=== PATIENT | male | born 1940 | race Caucasian/White ===

== ENCOUNTER → 2016-06-16 | Outpatient (CLI) | payer OTHER ==
[~2016-06-16] MED LIST: ASPCH81X PO; ATEN50TA PO; CIPR-255 PO; RAMI5CAP32 PO; SIMV20TA5 PO; TAMS0.4C38 PO
[2016-06-16 15:15] LABS: ALT/SGPT 48 U/L (12-78); AST/SGOT 26 U/L (15-37); BLOOD UREA NITROGEN 16 mg/dl (7-18); BUN/CREATININE RATIO 16.6 (10-20); CALCIUM 9.2 mg/dl (8.5-10.1); CARBON DIOXIDE 27 mmol/L (21-32); CHLORIDE 104 mmol/L (98-107); CHOLESTEROL 146 mg/dl (0-200); CREATININE 0.96 mg/dl (0.60-1.40); GLUCOSE 96 mg/dl (70-99); SODIUM 139 mmol/L (136-145)
[2016-06-16 15:18] LABS: ALB/GLOB RATIO 1.5 (0.9-2); ALKALINE PHOSPHATASE 50 U/L (45-117); CHOLESTEROL/HDL RATIO 4.2; HDL CHOLESTEROL 35 mg/dl; LDL CHOLESTEROL CALCULATED 78 mg/dl; TRIGLYCERIDES 167 mg/dl (0-150); VERY LOW DENSITY LIPOPROT CALC 33 mg/dl
== END | disposition home or self-care (01) ==
LOC: C.LABBC 10:16
PROVIDERS: ATTEND Physician Assistant Medical
DX: E55.9 Vitamin D deficiency, unspecified (principal); E78.5 Hyperlipidemia, unspecified

== ENCOUNTER → 2017-05-11 | Day surgery (SDC) | payer OTHER ==
[2017-04-28 14:46] VITALS: BMI 24.0
--- NOTE | 2017-04-28 15:08 | PAT Medication Instructions ---
Service Date Apr 28, 2017. Current Home Medication List Cholecalciferol (Vitamin D3), 1 TAB PO QAM Metoprolol Succinate (Toprol Xl), 25 MG PO QAM Ramipril (Altace), 1 CAP PO QAM Simvastatin (Zocor), 1 TAB PO HS Tamsulosin Hcl (Flomax), 1 CAP PO QAM Medication Instructions For Your Scheduled Surgery - Hold the following medications the morning of surgery: Cholecalciferol (Vitamin D3), 1 TAB PO QAM Ramipril (Altace), 1 CAP PO QAM Tamsulosin Hcl (Flomax), 1 CAP PO QAM - Take the following medications the morning of surgery with a sip of water: Metoprolol Succinate (Toprol Xl), 25 MG PO QAM - Take the following medications as scheduled the night before surgery: Simvastatin (Zocor), 1 TAB PO HS If you have any questions please call us at [phone] or [phone] or [phone]
--- NOTE | 2017-04-28 16:18 | DIAGNOSTIC IMAGING REPORT ---
CHEST 2 VIEWS ROUTINE CLINICAL HISTORY: Preoperative evaluation. COMPARISON STUDY: No previous studies for comparison. FINDINGS: Lung volumes are normal. Linear left lower lung opacity is suggestive of atelectasis or scarring. There is no pneumonia or evidence for pulmonary edema. Cardiomediastinal silhouette is unremarkable. IMPRESSION: No acute cardiopulmonary findings. Electronically signed by: Garry Campos M.D. 04/28/2017 4:16 PM Dictated Date/Time: 04/28/2017 4:16 PM
[2017-04-28 16:25] LABS: BASO % 0.4 %; BASO ABS # 0.02 K/uL (0-0.2); EOS % 2.5 %; EOS ABS # 0.12 K/uL (0-0.5); HEMATOCRIT 42.9 % (42-52); HEMOGLOBIN 15.1 g/dL (14.0-18.0); IG# 0.01 K/uL (0.00-0.02); LYMPH % 31.9 %; LYMPH ABS # 1.51 K/uL (1.2-3.4); MEAN CELL VOLUME 95.3 fL (80-100); MEAN CORPUSCULAR HEMOGLOBIN 33.6 pg (25-34); MEAN CORPUSCULAR HGB CONC 35.2 g/dl (32-36); MEAN PLATELET VOLUME 9.9 fL (7.4-10.4); MONO % 7.8 %; MONO ABS # 0.37 K/uL (0.11-0.59); NEUT % 57.2 %; NEUT ABS # 2.71 K/uL (1.4-6.5); PLATELET COUNT 150 K/uL (130-400); RED CELL DISTRIBUTION WIDTH CV 12.5 % (11.5-14.5); RED CELL DISTRIBUTION WIDTH SD 43.2 fL (36.4-46.3); WHITE BLOOD COUNT 4.74 K/uL (4.8-10.8)
[2017-04-28 16:42] LABS: CALCIUM 9.7 mg/dl (8.5-10.1); CREATININE 0.86 mg/dl (0.60-1.40)
[2017-04-28 17:50] LABS: HEP C IGG 13 YRS+OLDER_RFLX NEG (NEG)
[2017-05-03 02:27] LABS: HERPES SIMPLEX AB IGG-1 < 0.90 INDEX (< 0.90); HERPES SIMPLEX AB IGG-2 < 0.90 INDEX (< 0.90)
[~2017-05-11] VITALS: Ht 172.7 cm; Wt 73.6 kg
[~2017-05-11] MED LIST changes: -ASPCH81X PO; -ATEN50TA PO; +ATROPINE SULFATE 0.1 MG/ML 5ML SYR IV PRN; +BCTCR/30 EXT; +BUPIVACAINE/EPINEPHRINE 0.5% MPF 1:200,000 30 ML VIAL ONE; +CEFAZOLIN 2000MG IV PUSH 15 ML IV SCH; -CIPR-255 PO; +DEXAMETHASONE SOD INJ 4 MG/ML VIAL ONE; +EpHEDrine SULFATE INJ 50 MG/ML AMP IV PRN; +EpHEDrine SULFATE INJ 50 MG/ML AMP ONE; +FENTANYL CITRATE INJ 50 MCG/1 ML 2 ML VIAL IV PRN; +FENTANYL CITRATE INJ 50 MCG/1 ML 2 ML VIAL ONE; +LACTATED RINGER'S 1000ML IV SCH; +LIDOCAINE HCL 1% 20 ML VIAL ONE; +LIDOCAINE HCL 2% 2 ML VIAL (20MG/ML) ONE; +METO25TA4 PO; +MIDAZOLAM HCL 1 MG/ML 2ML VIAL ONE; +ONDANSETRON INJ 2 MG/ML 2 ML VIAL IV PRN; +ONDANSETRON INJ 2 MG/ML 2 ML VIAL ONE; +OXYC7.5T65 PO; +OXYCODONE/ACETAMINOPHEN 7.5-325 TAB PO PRN; +PROPOFOL IV EMULSION 10 MG/ML 20 ML VIAL IV ONE; +ROCURONIUM BROMIDE 10 MG/ML 5 ML VIAL IV ONE; +SODIUM CHLORIDE 0.9% INJ 10 ML VIAL ONE; +SUCCINYLCHOLINE CHLORIDE 20 MG/ML 10 ML VIAL IV ONE; +SULF800T23 PO; +VTMD1000 PO
[2017-05-11 10:06] VITALS: BP 162/93; PULSE 70; TEMP 37.4; O2SAT 97; Ht 172.7 cm; Wt 73.6 kg
--- NOTE | 2017-05-11 11:12 | History & Physical Bridge Note ---
H&P Re-Evaluation Bridge Note: I have examined the patient, reviewed the History & Physical and in the interval since the performance of the History & Physical I have noted the following changes of clinical significance: No changes noted
--- NOTE | 2017-05-11 12:03 | Discharge Instructions ---
Discharge Instructions Date of Service May 11, 2017. Admission Reason for Admission: Penile Lesion Discharge Discharge Diagnosis / Problem: Penile lesions Discharge Goals Goal(s): Decrease discomfort, Improve function Activity Recommendations Activity Limitations: resume your previous activity Lifting Limitations: gradually increase as tolerated Exercise/Sports Limitations: gradually increase as tolerated . Instructions / Follow-Up Instructions / Follow-Up May have pain or discomfort. Call if any issues. Okay to shower tomorrow. No bathing or soaking. Okay to wash 2-3 x daily with warm soapy water. Call if any fevers or chills. Okay to bandage as needed. Okay to apply cream 2-3 x daily as needed. Okay to use meds for pain control. Monitor for discharge or bleeding. Current Hospital Diet Patient's current hospital diet: Discharge Diet Recommended Diet: Regular Diet Procedures Procedures Performed: Excision of lesions Pending Studies Studies pending at discharge: no Medical Emergencies . Who to Call and When: Medical Emergencies: If at any time you feel your situation is an emergency, please call 911 immediately. . Non-Emergent Contact Non-Emergency issues call your: Primary Care Provider, Urologist Call Non-Emergent contact if: you have a fever, temperature is above 100.5, temperature is above 101, temperature is above 101.5, your pain is not controlled, your pain is worsening, your pain is unusual for you, wound has increased drainage, wound has increased redness, wound has increased pain . . "Provider Documentation" section prepared by Walter Phan. .
--- NOTE | 2017-05-11 13:04 | [facility] Operative Report ---
Operative Report Operative Date May 11, 2017. Pre-Operative Diagnosis Nonhealing ulcerated penile wounds Post-Operative Diagnosis Same Procedure(s) Performed Excision of glans and foreskin lesions of penis x 4. Surgeon Sylvester Estimated Blood Loss Minimal Findings Two ulcerated nonhealing lesions of dorsal glans. Specimens 1. Lesion Dorsal Glans 3 x 3 mm 2. Lesion Dorsal Calderon of glans 10 x 6 mm 3. Dorsal Foreskin lesion 18 x 4 mm 4. Right Dorsal Foreskin lesion 7 x 4 mm Drains None Anesthesia Type General Complication(s) none Indications Non healing wounds of glans failed topical treatment. Risks and benefits discussed at length. Description of Procedure Patient was consented and brought back to the operating room. Patient was placed under anesthesia in the supine position. Patient was prepped and draped in the regular sterile fashion. A time out was completed. With the timeout completed, a penile block was completed with 1% lidocaine without epinephrine. A penile occlusion was placed to assist with bleeding. This was secured. The lesions were marked and measured. The two lesions were located at the dorsal penile glans one mid glans the other at the calderon of the glans. Two other lesions were appreciated on the foreskin dorsally. These four lesions were anesthetized with local. A 15 blade scalpel was used to excise the lesion in an elliptical fashion. The lesions were then dissected and removed. The right superior side of the lesion was marked with suture for the two larger lesions. The beds were then assessed and flushed. The bleeding was controlled with cautery. The deep tissue was reapproximated with a vicryl suture for the lesion of the glans. The skin was closed with a 3-0 chromic suture. The area was cleaned, glue placed, and the area was bandaged. The occulsion was released and no bleeding was noted. The patient was cleaned, aroused from anesthesia, and transferred to the pacu in stable condition having tolerated the procedure well with no complications. I was present and participated in all aspects of the procedure. I attest to the content of the Intraoperative Record and any orders documented therein. Any exceptions are noted below.
[2017-05-11 14:03] VITALS: BP 150/80; PULSE 94; TEMP 36.3; O2SAT 95
--- NOTE | 2017-05-11 14:30 | Anesthesiology Progress Note ---
Anesthesia Post Op Note Date & Time May 11, 2017 at 14:29 Vital Signs Pain Intensity: 0 Vital Signs Past 12 Hours Date Time Temp Pulse Resp B/P (MAP) Pulse Ox O2 Delivery O2 Flow Rate FiO2 05/11/17 14:03 36.3 94 16 150/80 95 Room Air 05/11/17 13:55 36.4 99 16 154/84 97 Room Air 05/11/17 13:45 96 16 149/80 94 Room Air 05/11/17 13:35 98 16 147/79 100 Oxymask 10 05/11/17 13:25 96 16 133/81 100 Oxymask 10 05/11/17 13:17 36. 101 16 147/83 96 Oxymask 10 05/11/17 10:06 37.4 70 20 162/93 (116) 97 Room Air Notes Mental Status: alert / awake / arousable, participated in evaluation Pt Amnestic to Procedure: Yes Nausea / Vomiting: adequately controlled Pain: adequately controlled Airway Patency, RR, SpO2: stable & adequate BP & HR: stable & adequate Hydration State: stable & adequate Anesthetic Complications: no major complications apparent
[2017-05-11 14:33] VITALS: BP 157/83; PULSE 95; TEMP 36.5; O2SAT 96
== END | disposition home or self-care (01) ==
LOC: C.ACU 09:17
PROVIDERS: ATTEND Urology
DX: N48.5 Ulcer of penis (principal); N48.1 Balanitis; I10 Essential (primary) hypertension; N40.0 Benign prostatic hyperplasia without lower urinary tract symptoms; E78.5 Hyperlipidemia, unspecified; E55.9 Vitamin D deficiency, unspecified; Z87.442 Personal history of urinary calculi; Z80.0 Family history of malignant neoplasm of digestive organs